=== PATIENT | female | born 1965 | race Caucasian/White ===

== ENCOUNTER 2020-07-10 06:35 | Outpatient (REF) | payer OTHER, SELFPAY ==
[2020-07-10 07:38] LABS: COVID-19 Test Negative (Negative); IDNOW Serial# 55D5AD1C
== END 2020-07-10 06:36 | disposition home or self-care (01) ==
LOC: HO.EMPCOV 06:35
PROVIDERS: Visit Provider Internal Medicine
DX: Z20.828 Contact with and (suspected) exposure to other viral communicable diseases (principal)
CPT/HCPCS: 87635; C9803

== ENCOUNTER 2021-07-11 15:33 | Outpatient (REF) | payer OTHER, SELFPAY ==
--- NOTE | ~2021-07-11 | MM_ITS ---
EXAMINATION: MM SCREENING DIGITAL BREAST TOMOSYNTHESIS, BILATERAL CLINICAL INFORMATION: Screening. Asymptomatic. The lifetime risk of breast cancer based on the Tyrer-Cuzick Model is 14%. COMPARISON: Mammography: 04/08/2019, 02/11/2018, 12/22/2016 TECHNIQUE: Digital breast tomosynthesis is performed in both the craniocaudal and mediolateral oblique views along with computer-aided detection (CAD). Synthesized 2D images are generated from the tomosynthesis. FINDINGS: The breasts are heterogeneously dense, which may obscure small masses (ACR BI-RADS breast composition Category c). There are no significant masses, abnormal calcifications, or other abnormalities. Fibronodular parenchymal pattern is similar to prior exams. There is no developing density. The axilla and skin contours are unremarkable. No significant changes. MM/MM tomosynthesis screening BI IMPRESSION: No mammographic evidence of malignancy. ASSESSMENT: BI-RADS 1: Negative RECOMMENDATION: Routine annual mammography screening. This patient's information was entered into a reminder system with a target due date for their next mammogram.
== END 2021-07-11 15:34 | disposition home or self-care (01) ==
LOC: HO.MAMMO 15:33
PROVIDERS: Visit Provider Internal Medicine
DX: Z12.31 Encounter for screening mammogram for malignant neoplasm of breast (principal)
CPT/HCPCS: 77063; 77067

== ENCOUNTER → 2022-06-11 09:13 | Outpatient (RCR) | payer OTHER, SELFPAY ==
[2020-07-03 07:08] LABS: COVID-19 Test Negative (Negative)
[2020-07-17 09:34] LABS: COVID-19 Test Negative (Negative)
[2020-07-24 06:55] LABS: COVID-19 Test Negative (Negative); IDNOW Serial# 55D5AD1C
[2020-08-10 13:20] LABS: SARS-COV-2 PCR UMBRL Not Detected
[2020-08-16 12:33] LABS: SARS-COV-2 PCR UMBRL Not Detected
[2020-08-23 10:30] LABS: SARS-COV-2 PCR UMBRL Not Detected
[2020-08-30 09:45] LABS: SARS-COV-2 PCR UMBRL Not Detected
[2020-09-06 13:25] LABS: SARS-COV-2 PCR UMBRL Not Detected
[2020-09-13 08:27] LABS: SARS-COV-2 PCR UMBRL NEGATIVE
== END | disposition home or self-care (01) ==
LOC: HO.EMPCOV 07-03 06:48
PROVIDERS: Visit Provider Internal Medicine
DX: Z20.828 Contact with and (suspected) exposure to other viral communicable diseases (principal)
CPT/HCPCS: 36415; 87635; C9803; U0003

== ENCOUNTER 2022-07-21 15:30 | Outpatient (REF) | payer OTHER, SELFPAY ==
--- NOTE | ~2022-07-21 | MM_ITS ---
EXAMINATION: MM SCREENING DIGITAL BREAST TOMOSYNTHESIS, BILATERAL CLINICAL INFORMATION: Screening. Asymptomatic. The lifetime risk of breast cancer based on the Tyrer-Cuzick Model is 14%. COMPARISON: Mammography: 07/11/2021, 04/08/2019, 02/11/2018 TECHNIQUE: Digital breast tomosynthesis is performed in both the craniocaudal and mediolateral oblique views along with computer-aided detection (CAD). Synthesized 2D images are generated from the tomosynthesis. FINDINGS: The breasts are heterogeneously dense, which may obscure small masses (ACR BI-RADS breast composition Category c). There are no significant masses, abnormal calcifications, or other abnormalities. Fibronodular parenchymal pattern is similar to prior exam. No developing density or architectural abnormality. The axilla are unremarkable. MM/MM tomosynthesis screening BI IMPRESSION: No mammographic evidence of malignancy. ASSESSMENT: BI-RADS 1: Negative RECOMMENDATION: Routine annual mammography screening. This patient's information was entered into a reminder system with a target due date for their next mammogram.
== END 2022-07-21 15:31 | disposition home or self-care (01) ==
LOC: HO.MAMMO 15:30
PROVIDERS: PCP Internal Medicine; Visit Provider Internal Medicine
DX: Z12.31 Encounter for screening mammogram for malignant neoplasm of breast (principal)
CPT/HCPCS: 77063; 77067

== ENCOUNTER 2022-10-21 07:17 | Outpatient (REF) | payer OTHER, SELFPAY ==
[2022-10-21 07:30] LABS: MANUAL DIFF FLAG NO
[2022-10-21 07:38] LABS: Basophils Percent Auto 0.8 % (0-2); Eosinophils Absolute Auto 0.1 X10*3/uL (0.0-0.4); Eosinophils Percent Auto 1.9 % (0-4); Hemoglobin 13.6 g/dl (12.0-16.0); Imm Gran Abs Auto 0.01 X10*3/uL (0.00-0.03); Imm Gran Pct Auto 0.3 % (0.0-0.4); Lymphocytes Absolute Auto 1.5 X10*3/uL (1.2-4.9); Lymphocytes Percent Auto 42.2 % (20-40); Mean Corpuscular HGB Conc 34.9 g/dl (31.0-35.0); Mean Corpuscular Hemoglobin 30.8 pg (27.0-33.0); Mean Corpuscular Volume 88.4 fL (80.0-98.0); Monocytes Absolute Auto 0.4 X10*3/uL (0.1-1.2); Monocytes Percent Auto 10.4 % (2-11); Neutrophils Absolute Auto 1.6 x10*3/uL (2.0-8.3); Neutrophils Percent Auto 44.4 % (45-73); Platelet Count 222 X10*3/uL (160-400); Red Blood Count 4.41 X10*6/uL (4.20-5.50); Red Cell Distribution Width 13.1 % (11.0-16.0); White Blood Count 3.7 X10*3/uL (4.8-10.8)
[2022-10-21 07:59] LABS: Alanine Aminotransferase 25 U/L (0-31); Albumin Level 4.1 g/dL (3.5-5.0); Alkaline Phosphatase 49 U/L (39-117); Anion Gap 12 (12-20); Aspartate Amino Transferase 29 U/L (5-31); Bilirubin Total 0.9 mg/dL (0.0-1.0); Blood Urea Nitrogen 7 mg/dL (9-16); Calcium 9.3 mg/dL (8.4-10.2); Carbon Dioxide 29 mmol/L (22-29); Chloride 104 mmol/L (96-108); Cholesterol 221 mg/dL; Estimated Glomerular Filt Rate > 60; Glucose Random 94 mg/dL (60-115); HDL Cholesterol 80 mg/dL; LDL Cholesterol Calculated 121 mg/dl; Magnesium 1.9 mg/dL (1.6-2.6); Sodium 141 mmol/L (135-145); Total Protein 6.2 g/dL (6.5-8.0); Triglycerides 103 mg/dL
[2022-10-21 08:15] LABS: Vitamin D 25-OH Total 19.9 ng/mL (>30)
== END 2022-10-21 07:18 | disposition home or self-care (01) ==
LOC: HO.LAB 07:17
PROVIDERS: PCP Internal Medicine; Visit Provider Internal Medicine
DX: Z00.00 Encounter for general adult medical examination without abnormal findings (principal)
CPT/HCPCS: 36415; 80053; 80061; 82306; 83735; 85025

== ENCOUNTER 2023-09-02 14:58 | Outpatient (REF) | payer OTHER, SELFPAY | END 2023-09-02 14:59 | disposition home or self-care (01) | LOC: HO.MAMMO 14:58 | PROVIDERS: PCP Internal Medicine; Visit Provider Internal Medicine | DX: Z12.31 Encounter for screening mammogram for malignant neoplasm of breast (principal) | CPT/HCPCS: 77063; 77067 ==

== ENCOUNTER → 2023-09-02 15:15 | Outpatient (BNV) | payer OTHER, SELFPAY | PROVIDERS: PCP Internal Medicine; Visit Provider Radiology Diagnostic Radiology | DX: Z12.31 Encounter for screening mammogram for malignant neoplasm of breast (principal) | CPT/HCPCS: 77063; 77067 ==

== ENCOUNTER 2024-02-02 07:23 | Outpatient (REF) | payer OTHER, SELFPAY ==
--- NOTE | ~2024-02-02 | US_ITS ---
EXAMINATION: US RETROPERITONEAL LIMITED (AORTA) CLINICAL INFORMATION: Abdominal aortic ectasia. COMPARISON: None available. TECHNIQUE: Garcia-scale, color Doppler and spectral Doppler evaluation of the abdominal aorta. FINDINGS: The measurements of the aorta in maximum AP and transverse dimensions respectively are as follows: Proximal: 2.0 x 2.2 cm. Mid: 2.0 x 2.0 cm. Distal: 1.6 x 1.7 cm. PSV: 140 cm/s. The measurements of the common iliac arteries in maximum AP and TRV dimensions are as follows: Right Common Iliac Artery: 1.5 x 1.3 cm. Left Common Iliac Artery: 1.3 x 1.3 cm. US/US abdominal aortic aneurysm IMPRESSION: Negative for abdominal aortic aneurysm.
[2024-02-02 07:37] LABS: MANUAL DIFF FLAG NO
[2024-02-02 08:06] LABS: Basophils Absolute Auto 0.1 X10*3/uL (0.0-0.2); Basophils Percent Auto 1.2 % (0-2); Eosinophils Absolute Auto 0.1 X10*3/uL (0.0-0.4); Eosinophils Percent Auto 1.9 % (0-4); Hematocrit 39.9 % (37.0-47.0); Hemoglobin 14.3 g/dl (12.0-16.0); Imm Gran Abs Auto 0.02 X10*3/uL (0.00-0.03); Imm Gran Pct Auto 0.5 % (0.0-0.4); Lymphocytes Absolute Auto 1.7 X10*3/uL (1.2-4.9); Lymphocytes Percent Auto 40.6 % (20-40); Mean Corpuscular HGB Conc 35.8 g/dl (31.0-35.0); Mean Corpuscular Hemoglobin 31.1 pg (27.0-33.0); Mean Corpuscular Volume 86.7 fL (80.0-98.0); Mean Platelet Volume 10.3 fL (9.4-12.3); Monocytes Absolute Auto 0.4 X10*3/uL (0.1-1.2); Monocytes Percent Auto 10.1 % (2-11); Neutrophils Absolute Auto 1.9 x10*3/uL (2.0-8.3); Neutrophils Percent Auto 45.7 % (45-73); Platelet Count 223 X10*3/uL (160-400); Red Cell Distribution Width 12.6 % (11.0-16.0); White Blood Count 4.1 X10*3/uL (4.8-10.8)
[2024-02-02 08:52] LABS: Alanine Aminotransferase 12 U/L (0-31); Albumin Level 4.2 g/dL (3.5-5.0); Alkaline Phosphatase 58 U/L (39-117); Anion Gap 13 (12-20); Aspartate Amino Transferase 21 U/L (5-31); Bilirubin Total 0.7 mg/dL (0.0-1.0); Blood Urea Nitrogen 8 mg/dL (9-16); C Reactive Protein < 0.04 mg/dL (< or = 0.50); Calcium 9.7 mg/dL (8.4-10.2); Carbon Dioxide 29 mmol/L (22-29); Chloride 104 mmol/L (96-108); Cholesterol 181 mg/dL (<200); Estimated Glomerular Filt Rate > 60; Glucose Fasting 95 mg/dL (60-99); HDL Cholesterol 79 mg/dL (>40); LDL Cholesterol Calculated 91 mg/dL (<100); Potassium 3.7 mmol/L (3.3-5.1); Sodium 142 mmol/L (135-145); Total Protein 6.9 g/dL (6.5-8.0); Triglycerides 59 mg/dL (<150)
[2024-02-02 09:04] LABS: TSH reflex Free T4 1.34 uIU/mL (0.32-4.0)
[2024-02-02 09:08] LABS: Free T4 (Free Thyroxine) 0.97 ng/dL (0.71-1.85); Thyroid Stimulating Hormone 1.35 uIU/mL (0.32-4.0); Vitamin D 25-OH Total 58.6 ng/mL (>30)
== END 2024-02-02 07:24 | disposition home or self-care (01) ==
LOC: HO.US 07:23
PROVIDERS: Absent Provider Nurse Practitioner Adult Health; PCP Internal Medicine; Visit Provider Internal Medicine
DX: I77.811 Abdominal aortic ectasia (principal); E78.00 Pure hypercholesterolemia, unspecified; R63.5 Abnormal weight gain; E55.9 Vitamin D deficiency, unspecified
CPT/HCPCS: 36415; 76706; 80053; 80061; 82306; 84439; 84443; 85025; 86140

== ENCOUNTER 2024-02-17 12:35 | Outpatient (REF) | payer OTHER, SELFPAY ==
--- NOTE | ~2024-02-17 | MM_ITS ---
EXAMINATION: BONE DENSITOMETRY CLINICAL INDICATION: Asymptomatic menopausal state. COMPARISON: This is the patient's baseline examination. TECHNIQUE: Using a [employer] DXA System (software version: 13.1) manufactured by [email or web address], dual-energy x-ray absorptiometry was performed of the lumbar spine and left hip. The images are of good technical quality. Summary results are attached. FINDINGS: AP SPINE L1-L2 (excluding L3 and L4): The data of L1-L4 has been changed to exclude the L3 and L4 vertebral bodies, because degenerative sclerosis at these levels may cause overestimation of lumbar spine density. BMD 1.133 g/cm2, Z-score 1.1, T-score -0.3, normal. LEFT FEMUR, NECK: BMD 0.852 g/cm2, Z-score 0.0, T-score -1.3, osteopenia. LEFT FEMUR, TOTAL: BMD 0.967 g/cm2, Z-score 0.7, T-score -0.3, normal. IDENTIFIED RISK FACTORS: Low calcium intake. Menopause. HISTORY OF FRACTURE: None listed. MEDICATIONS: Multivitamin. Vitamin D. MM/XR DEXA axial skeleton IMPRESSION: 1. DIAGNOSIS: Osteopenia based on the lowest T-score value of -1.3 in the femoral neck applying World Health Organization criteria. 2. 10-YEAR FRACTURE RISK PREDICTION, FRAX: Major osteoporotic fracture (clinical spine, forearm, hip or shoulder) 6.6%. Hip fracture 0.5%. 3. Treatment Recommendations: NOF guidelines recommend consideration for treatment in postmenopausal women and men age 50 and older presenting with the following: -A hip or vertebral (clinical or morphometric) fracture. -T-score less than or equal to -2.5 at the femoral neck or spine after appropriate evaluation to exclude secondary causes. -Low bone mass at the hip or spine and a 10-year fracture probability by FRAX of greater than or equal to 3% for hip fracture or greater than or equal to 20% for major osteoporotic fracture based on the [place] adapted WHO algorithm. 4. Other Recommendations: All treatment decisions require clinical judgment and consideration of individual patient factors, including patient preferences, comorbidities, previous drug use, risk factors not captured in the FRAX model (e.g. frailty, falls, vitamin D deficiency, increased bone turnover, interval significant decline in bone density) and possible under or overestimation of fracture risk by FRAX. Additional medical evaluation for secondary cause of low bone mineral density may be appropriate. FUTURE SCAN RECOMMENDATION: People with diagnosed cases of osteoporosis or at high risk for fracture should have regular bone mineral density tests. For patients eligible for Medicare, routine testing is allowed once every 2 years. The testing frequency can be increased to one year for patients who have rapidly progressing disease, those who are receiving or discontinuing medical therapy to restore bone mass, or have additional risk factors.
== END 2024-02-17 12:36 | disposition home or self-care (01) ==
LOC: HO.MAMMO 12:35
PROVIDERS: PCP Internal Medicine; Visit Provider Internal Medicine
DX: Z13.820 Encounter for screening for osteoporosis (principal); Z78.0 Asymptomatic menopausal state
CPT/HCPCS: 77080

== ENCOUNTER 2024-09-07 14:52 | Outpatient (REF) | payer OTHER, SELFPAY | END 2024-09-07 14:53 | disposition home or self-care (01) | LOC: HO.MAMMO 14:52 | PROVIDERS: PCP Internal Medicine; Visit Provider Internal Medicine | DX: Z12.31 Encounter for screening mammogram for malignant neoplasm of breast (principal) | CPT/HCPCS: 77063; 77067 ==

== ENCOUNTER 2024-09-15 14:24 | Outpatient (REF) | payer OTHER, SELFPAY ==
--- NOTE | ~2024-09-15 | XR_ITS ---
EXAMINATION: XR ANKLE, LEFT CLINICAL INFORMATION: RULE OUT FX , pain COMPARISON: None available. TECHNIQUE: AP, lateral, and mortise views of the left ankle. FINDINGS: No acute fracture, dislocation, or focal bony abnormality. Normal alignment. Ankle mortise is preserved. The talar dome is normal. Normal plantar arch. The hindfoot and midfoot appear normal. Normal-appearing subtalar joints. Normal soft tissues. XR/XR ankle LT 2V IMPRESSION: Normal left ankle. Electronically signed by: Carlos Pink MD 09/16/2024 08:50 AM [facility]
--- NOTE | ~2024-09-15 | XR_ITS ---
EXAMINATION: XR FOOT, LEFT CLINICAL INFORMATION: LEFT FOOT PAIN ; rule out fracture. COMPARISON: None available. TECHNIQUE: AP, lateral, and oblique views of the left foot. FINDINGS: The bones and soft tissues are normal. No fracture. Alignment is anatomic. Joint spaces are maintained. XR/XR foot LT 2V IMPRESSION: No acute findings left foot. Electronically signed by: Carlos Pink MD 09/16/2024 08:48 AM [facility]
--- OUTSIDE RECORDS SUMMARY | 2024-09-15 17:05 | XMS_ITS | Continuity of Care Document ---
Author Organization [facility] DIRECTOR OF STRATEGIC SOURCING Oncolog y Address [address] [place] [id number]- Care Team Providers Care Janitor Name Role Phone Carroll Ferreira MD Primary Care Physician [phone] Encounter [facility] R [id number] Date(s): 06/06/24 - 08/18/24 [facility] DIRECTOR OF STRATEGIC SOURCING Oncology [address] [place] [id number]- Attending Physician: Sabrina Shepherd MD Admitting Physician: Sabrina Shepherd MD Referring Physician: Sabrina Shepherd MD Encounter Type: Pre-OutPatient One Time Allergies, Adverse Reactions, Alerts Substance Criticality Severity Reaction Reaction Severity Status Seasonale Active acetaminophen/butalbital/caf fe ine/codeine Active Medications B Complex 100 0 Refills, Maintenance, 04/21/24 3:37:00 PM EDT, Partial fill upon patient request if the prescription is for a schedule II opioid drug. Start Date: 04/21/24 Status: Ordered Repeat number: 1 Calcium with Vitamin D and Vitamin K oral tablet, chewable 1 each, 2 times a day, 0 Refills, Maintenance, 04/26/24 9:19:00 AM EDT, Partial fill upon patient request if the prescription is for a schedule II opioid drug. Start Date: 04/26/24 Status: Ordered Repeat number: 1 magnesium (as citrate) 83 mg oral tablet, chewable 2 tablet = 166 mg, By Mouth, 2 times a day, 0 Refills, Maintenance, 04/21/24 3:37:00 PM EDT, Partialfill upon patient request if the prescription is for a schedule II opioid drug. Start Date: 04/21/24 Status: Ordered Repeat number: 1 melatonin-turmeric 6 mg-500 mg with Antioxidant Blend and Black Pepper Extract oral capsule 1 capsule, By Mouth, Daily at bedtime, 0 Refills, Maintenance, 04/26/24 9:18:00 AM EDT, Partial fill upon patient request if the prescription is for a schedule II opioid drug. Start Date: 04/26/24 Status: Ordered Repeat number: 1 NAC 500 mg oral capsule 1 capsule = 500 mg, By Mouth, Daily, 0 Refills, Maintenance, 04/21/24 3:38:00 PM EDT, Partial fill upon patient request if the prescription is for a schedule II opioid drug. Start Date: 04/21/24 Status: Ordered Repeat number: 1 NAC 500 mg oral capsule 1 capsule = 500 mg, By Mouth, Daily, 0 Refills, Maintenance, 04/26/24 9:18:00 AM EDT, Partial fill upon patient request if the prescription is for a schedule II opioid drug. Start Date: 04/26/24 Status: Ordered Repeat number: 1 Probiotic Formula By Mouth, Daily, 0 Refills, Maintenance, 04/21/24 3:38:00 PM EDT, Partial fill upon patient request if the prescription is for a schedule II opioid drug. Start Date: 04/21/24 Status: Ordered Repeat number: 1 Vitamin C By Mouth, Daily, 0 Refills, Maintenance, 04/21/24 3:37:00 PM EDT, Partial fill upon patient request if the prescription is for a schedule II opioid drug. Start Date: 04/21/24 Status: Ordered Repeat number: 1 Vitamin D2 By Mouth, 0 Refills, Maintenance, 04/21/24 3:37:00 PM EDT, Partial fill upon patient request if the prescription is for a schedule II opioid drug. Start Date: 04/21/24 Status: Ordered Repeat number: 1 Problem List Condition Confirmation Course Effective Dates Status Health St atus Informant Family history of ovarian cancer Confirmed Active Rosacea Confirmed Active Seasonal allergies Confirmed Active Uterine leiomyoma Confirmed Active Vaginal dryness Confirmed Active Social History Social History Type Response Smoking Status Never (less than 100 in lifetime) entered on: 04/21/24 Sex Sex Representation Female (finding) Patient Care team information Care Team Personnel Name: Carroll Ferreira MD Position: [facility] Outreach Member Role: PCP Address: [address] [place] [address] [place] [address]- Telecom: Care Team Related Persons Name: DARRICK PEPPER Name: JESUS LEE Insurance Providers Guarantor name: HARI Health Plan Information #: 1 Payer: [employer] PPO Member Number: [id number] Policy Number: HARI Group Number: [id number] Health Plan Information #: 2 Payer: [employer] PPO Member Number: [id number] Policy Number: NA Group Number: [id number]
== END 2024-09-15 14:25 | disposition home or self-care (01) ==
LOC: HO.XRAY 14:24
PROVIDERS: PCP Internal Medicine; Visit Provider Internal Medicine
DX: S99.912D Unspecified injury of left ankle, subsequent encounter (principal)
CPT/HCPCS: 73600; 73620

== ENCOUNTER 2025-02-16 11:31 | Outpatient (AMB) | payer OTHER, SELFPAY ==
--- NOTE | 2025-02-16 11:24 | MHC.PC.OV ---
Vital Signs 02/16/25 11:42 Height 5 ft 2 in Weight 128 lb BMI 23.4 BP 118/70 Blood Pressure Location Lt brachial Position Sitting Pulse 57 Pulse Source Pulse Oximeter Temp 97.6 F Temp Source Axillary Pulse Oximetry (%) 98 Oxygen Delivery Method Room Air Intake Visit Reasons: Routine Street Sprinkler Required: No Accompanied by: Self / Same As Patient Allergies codeine Allergy (Unknown, Verified 02/16/25 11:24) vomiting Tobacco use date assessed: 02/16/25 Dental Screening Dental Screen Date: 02/16/25 Did you have a dental visit in the last 12 months?: Yes Did you have a dental problem in the last 6 months where you did not have access to dental care?: No HPI HPI Comments History of Present Illness Details The patient is a 60 year old female with a past medical history of osteopenia, family history of ovarian cancer presenting for follow up Had genetic testing b/c of family history of ovarian cancer. It was negative. Sees anastacio MATTHEWS and saw onc at [facility]. Recommend possible prophylactic oopherectomy which she is hesitant to do given advanced age of cancer onset in relatives and negative genetic testing Aug 2024-Mammo DXA 01/2024 -2 year Cologuard Summer 2023 negative ROS CONSTITUTIONAL: Denies weight loss, fever and chills. HEENT: Denies changes in vision and hearing. RESPIRATORY: Denies SOB and cough. CV: Denies palpitations and CP GI: Denies abdominal pain, nausea, vomiting and diarrhea. : Denies dysuria and urinary frequency. MSK: Denies new myalgia and joint pain. SKIN: Denies rash and pruritus. NEUROLOGICAL: Denies headache PSYCHIATRIC: Denies recent changes in mood. PHYSICAL EXAM: GENERAL: Alert and oriented x 3. NAD EYES: EOMI. Anicteric. HENT: Moist mucous membranes. No scleral icterus. No cervical lymphadenopathy. LUNGS: Clear to auscultation bilaterally. CARDIOVASCULAR: Regular rate and rhythm. No murmur. No JVD. ABDOMEN: Soft, non-tender +bs EXTREMITIES: No edema. Non-tender. SKIN: No rashes or lesions. Warm. NEUROLOGIC: No focal neurological deficits. CN II-XII grossly intact PSYCHIATRIC: Cooperative. Appropriate mood and affect PFSH Family History Mother No problems noted. Father No problems noted. Social History Housing: House Patient Tobacco Use Status: Never used Tobacco e-Cigarette/Vaping Use: Never Used service: No Current occupational status: employed Cognitive needs: No Hearing needs: No Vision needs: Yes (reading glasses) Questionnaire PHQ-9 Over the last 2 weeks, how often have you been bothered by any of the following problems? 1. Little interest or pleasure in doing things: not at all 2. Feeling down, depressed, or hopeless: not at all 3. Trouble falling or staying asleep, or sleeping too much: not at all 4. Feeling tired or having little energy: not at all 5. Poor appetite or overeating: not at all 6. Feeling bad about yourself - or that you are a failure or have let yourself or your family down: not at all 7. Trouble concentrating on things, such as reading the newspaper or watching television: not at all 8. Moving or speaking so slowly that other people could have noticed. Or the opposite - being so fidgety or restless that you have been moving around a lot more than usual: not at all 9. Thoughts that you would be better off or of hurting yourself in some way: not at all Total score: 0 Depression Screening Interpretation: Negative Depression Screening Done: Yes 56541 - PHQ-9 Billing: Yes Source: Developed by Drs. Manish Lino, Aundrea Ayala, Grayson Valdovinos and colleagues, with an educational sravan from [employer]. Thrive Questionnaire Date Thrive assessed: 02/16/25 I am a: Patient Within the past 12 months, did the food you bought not last and you didn't have the money to get more?: Never true Within the past 12 months, did you worry whether your food would run out before you got money to buy more?: Never true Do you have trouble paying for medicines?: No Do you have trouble getting transportation to medical appointments?: No Do you have trouble paying your heating and electricity bill?: No Do you have trouble taking care of your child, family member or friend?: No Do you have trouble with day-to-day activities such as bathing, preparing meals, shopping, managing finances, etc.?: No Are you currently unemployed and looking for a job?: No Are you interested in more education?: No THRIVE Score: 0 AUDIT C Alcohol Use Questionnaire (AUDIT-C) 1. How often do you have a drink containing alcohol?: Monthly or less 2. How many drinks containing alcohol do you have on a typical day when you are drinking?: 1 or 2 3. How often do you have six or more drinks on one occasion?: Less than monthly Total Score: 2 ZACARIAS-7 AMB Questionnaire ZACARIAS-7 Date ZACARIAS - 7 assessed: 02/16/25 Feeling nervous, anxious, or on edge: 0 = Not at all Not being able to stop or control worryin = Not at all Worrying too much about different things: 0 = Not at all Trouble relaxin = Not at all Being so restless that it is hard to sit still: 0 = Not at all Becoming easily annoyed or irritable: 0 = Not at all Feeling afraid as if something awful might happen: 0 = Not at all Total ZACARIAS-7 score (0-4 normal; 5-9 mild; 10-14 moderate; 15-21 severe): 0 Source: Developed by Drs. Manish Lino, Aundrea Ayala, Grayson Valdovinos and colleagues, with an educational sravan from [employer]. Physical exam (Primary Care) Vital Signs: Last Vital Signs Temp 97.6 F 02/16/25 11:42 Pulse 57 02/16/25 11:42 BP 118/70 02/16/25 11:42 Pulse Ox 98 02/16/25 11:42 Oxygen Delivery Method Room Air 02/16/25 11:42 BMI result Body Mass Index 23.4 Tobacco/Smoking Status: Tobacco use Status Tobacco use date assessed 02/16/25 02/16/25 11:26 Patient Tobacco Use Status Never used Tobacco 02/16/25 11:26 e-Cigarette/Vaping Use Never Used 02/16/25 11:26 PHQ-9: PHQ-9 Score PHQ-9: Total score 0 02/16/25 11:47 Depression Screening Interpretation: Negative Thrive Assessment: Date of Thrive Assessment Date Thrive assessed 02/16/25 02/16/25 11:26 Coding Level of Care Code New Pt Level 3 (29303) Complex EM visit Add On G2211 Diagnoses Osteopenia of neck of left femur M85.852 Osteopenia location: femoral neck Laterality: left Family history of ovarian cancer Z80.41 Screening for metabolic disorder Z13.228 Additional Codes PHQ-9 - 50019 - PHQ-9 Billing: Yes ([id number]) Assessment & Plan Assessment & Plan (1) Osteopenia: Code(s): M85.80 - Other specified disorders of bone density and structure, unspecified site Category: Medical Qualifiers: Osteopenia location: femoral neck Laterality: left Qualified Code(s): M85.852 - Other specified disorders of bone density and structure, left thigh (2) Family history of ovarian cancer: Code(s): Z80.41 - Family history of malignant neoplasm of ovary Category: Medical (3) Screening for metabolic disorder: Code(s): Z13.228 - Encounter for screening for other metabolic disorders Category: Medical Plan 60 to establish care past medical surgical, social reviewed osteopenia-taking vitamin d calcium Update labs Orders: Orders Complete Blood Count Auto Diff Today M85.80 - Other specified disorders of bone density and structure, unspecified site, R53.83 - Other fatigue, Z13.0 - Encounter for screening for diseases of the blood and blood-forming organs and certain disorders involving the immune mechanism, Z13.220 - Encounter for screening for lipoid disorders, Z13.228 - Encounter for screening for other metabolic disorders, Z80.41 - Family history of malignant neoplasm of ovary Lipid Panel Today M85.80 - Other specified disorders of bone density and structure, unspecified site, R53.83 - Other fatigue, Z13.0 - Encounter for screening for diseases of the blood and blood-forming organs and certain disorders involving the immune mechanism, Z13.220 - Encounter for screening for lipoid disorders, Z13.228 - Encounter for screening for other metabolic disorders, Z80.41 - Family history of malignant neoplasm of ovary Vitamin D 25-OH (D2 and D3) Today M85.80 - Other specified disorders of bone density and structure, unspecified site, R53.83 - Other fatigue, Z13.0 - Encounter for screening for diseases of the blood and blood-forming organs and certain disorders involving the immune mechanism, Z13.220 - Encounter for screening for lipoid disorders, Z13.228 - Encounter for screening for other metabolic disorders, Z80.41 - Family history of malignant neoplasm of ovary Comprehensive Met. Panel Today M85.80 - Other specified disorders of bone density and structure, unspecified site, R53.83 - Other fatigue, Z13.0 - Encounter for screening for diseases of the blood and blood-forming organs and certain disorders involving the immune mechanism, Z13.220 - Encounter for screening for lipoid disorders, Z13.228 - Encounter for screening for other metabolic disorders, Z80.41 - Family history of malignant neoplasm of ovary TSH reflex Free T4 Today M85.80 - Other specified disorders of bone density and structure, unspecified site, R53.83 - Other fatigue, Z13.0 - Encounter for screening for diseases of the blood and blood-forming organs and certain disorders involving the immune mechanism, Z13.220 - Encounter for screening for lipoid disorders, Z13.228 - Encounter for screening for other metabolic disorders, Z80.41 - Family history of malignant neoplasm of ovary
[2025-02-16 11:42] VITALS: BP 118/70; PULSE 57; TEMP 36.4; O2SAT 98; BMI 23.4
== END 2025-02-16 12:59 | disposition home or self-care (01) ==
LOC: HO.HMCHD 11:31
PROVIDERS: PCP Internal Medicine; Visit Provider Internal Medicine
DX: M85.852 Other specified disorders of bone density and structure, left thigh (principal); Z80.41 Family history of malignant neoplasm of ovary; Z13.228 Encounter for screening for other metabolic disorders

== ENCOUNTER → 2025-02-16 11:31 | Outpatient (BNVA) | payer OTHER, SELFPAY | PROVIDERS: PCP Internal Medicine; Visit Provider Internal Medicine | DX: Z13.31 Encounter for screening for depression (principal); M85.852 Other specified disorders of bone density and structure, left thigh; Z80.41 Family history of malignant neoplasm of ovary | CPT/HCPCS: 96127 ==

== ENCOUNTER 2025-06-21 09:35 | Outpatient (REF) | payer OTHER, SELFPAY ==
[2025-06-21 11:24] LABS: MANUAL DIFF FLAG NO
[2025-06-21 11:47] LABS: Hematocrit 42.4 % (37.0-47.0); Hemoglobin 14.6 g/dl (12.0-16.0); Imm Gran Abs Auto 0.01 X10*3/uL (0.00-0.03); Imm Gran Pct Auto 0.2 % (0.0-0.4); Lymphocytes Absolute Auto 1.8 X10*3/uL (1.2-4.9); Mean Corpuscular HGB Conc 34.4 g/dl (31.0-35.0); Mean Corpuscular Hemoglobin 30.4 pg (27.0-33.0); Mean Corpuscular Volume 88.1 fL (80.0-98.0); NRBC Abs Auto 0.000 X10*3/uL (0.0-0.012); NRBC Pct Auto 0.0 /100WBC (0.0-0.2); Platelet Count 246 X10*3/uL (160-400); Red Blood Count 4.81 X10*6/uL (4.20-5.50); White Blood Count 5.6 X10*3/uL (4.8-10.8)
[2025-06-21 12:26] LABS: Alanine Aminotransferase 21 U/L (0-31); Albumin Level 4.6 g/dL (3.5-5.0); Alkaline Phosphatase 76 U/L (39-117); Anion Gap 11 (12-20); Aspartate Amino Transferase 29 U/L (5-31); Blood Urea Nitrogen 22 mg/dL (9-16); Calcium 9.4 mg/dL (8.4-10.2); Carbon Dioxide 29 mmol/L (22-29); Chloride 107 mmol/L (96-108); Cholesterol 224 mg/dL (<200); Estimated Glomerular Filt Rate > 60; HDL Cholesterol 87 mg/dL (>40); Potassium 4.0 mmol/L (3.3-5.1); Sodium 143 mmol/L (135-145); Total Protein 7.2 g/dL (6.5-8.0); Triglycerides 94 mg/dL (<150)
[2025-06-22 09:08] LABS: CA-125 8 U/mL (<35)
[2025-06-25 12:34] LABS: Vitamin D 25-OH, D2 4 ng/mL; Vitamin D 25-OH, D3 36 ng/mL; Vitamin D 25-OH, Total 40 ng/mL (30-100)
== END 2025-06-21 09:36 | disposition home or self-care (01) ==
LOC: HO.10HDL 09:35
PROVIDERS: Referring Provider Nurse Practitioner Adult Health; Visit Provider Internal Medicine
DX: Z13.220 Encounter for screening for lipoid disorders (principal); Z13.228 Encounter for screening for other metabolic disorders; Z13.0 Encounter for screening for diseases of the blood and blood-forming organs and certain disorders involving the immune mechanism; Z13.6 Encounter for screening for cardiovascular disorders; M85.80 Other specified disorders of bone density and structure, unspecified site; R53.83 Other fatigue; Z80.41 Family history of malignant neoplasm of ovary
CPT/HCPCS: 36415; 80053; 80061; 82306; 84443; 85025; 86304